=== PATIENT | female | born 1990 | race African-American/Black ===

== ENCOUNTER 2017-09-14 03:18 | Emergency (ER) | payer MEDICAID, OTHER ==
[~2017-09-14] VITALS: Ht 167.6 cm; Wt 79.0 kg
[2017-09-14 06:00] VITALS: BP 125/80
[2017-09-14] MEDS ORDERED: KETOROLAC 60MG/2ML VIAL IM ONE (06:45)
== END 2017-09-14 07:16 | disposition home or self-care (01) ==
LOC: ER 03:18
DX: K04.7 Periapical abscess without sinus (principal)
CPT/HCPCS: 81025; 96372; 99283; J1885